=== PATIENT | male | born 1985 | race Caucasian/White ===

== ENCOUNTER 2016-04-20 11:11 | Emergency (ER) | payer MEDICAID | END 2016-04-20 14:02 | disposition left against medical advice (07) | LOC: D.ER 11:11 | DX: R07.9 Chest pain, unspecified (principal) ==

== ENCOUNTER 2016-08-14 16:51 | Emergency (ER) | payer MEDICAID | END 2016-08-14 20:22 | disposition home or self-care (01) | LOC: D.ER 16:51 | DX: R51 Headache (principal); S00.83XA Contusion of other part of head, initial encounter; X58.XXXA Exposure to other specified factors, initial encounter ==

== ENCOUNTER 2019-03-10 10:18 | Emergency (ER) | payer MEDICAID ==
[~2019-03-10] VITALS: Ht 188 cm; Wt 81.8 kg
[2019-03-10 10:26] VITALS: Ht 188 cm; Wt 81.8 kg
[2019-03-10 10:59] LABS: BASOPHILS 0.2 % (0-2); EOSINOPHILS 0.4 % (0-7); HEMATOCRIT 43.5 % (42.0-54.0); HEMOGLOBIN 15.1 g/dL (13.5-17.5); IMMATURE GRANULOCYTES 0.1 % (0-5); LYMPHOCYTES 8.2 % (15-50); MCH 33.2 pg (26.0-34.0); MCHC 34.7 g/dL (31.0-37.0); MCV 95.6 fL (80.0-100.0); MEAN PLATELET VOLUME 10.6 fL (7.4-10.4); MONOCYTES 7.5 % (2-11); NEUTROPHILS 83.6 % (40-80); PLATELET COUNT 159 10x3/uL (130-400); RBC 4.55 10x6/uL (4.20-6.10); WBC 9.7 10x3/uL (4.8-10.8)
[2019-03-10 11:00] LABS: CALC OSMOLALITY 264 mosm/kg (275-300); CALCIUM 9.2 mg/dL (8.5-10.1); CARBON DIOXIDE 24.3 mmol/L (21.0-32.0); CHLORIDE - SERUM 96 mmol/L (98-107); CREATININE - SERUM 0.6 mg/dL (0.6-1.3); GLUCOSE 143 mg/dL (74-106); POTASSIUM - SERUM 3.6 mmol/L (3.5-5.1); SODIUM 133 mmol/L (136-145); UREA NITROGEN 5 mg/dL (7-18); eGFR NON AFRICAN AMERICAN > 90 mL/min (90-120)
[2019-03-10 11:02] LABS: APTT 30.3 SECONDS (22.8-39.4); INR 1.14 (0.85-1.17); PROTIME 14.1 SECONDS (11.6-15.0)
[2019-03-10 11:15] LABS: ALBUMIN 3.6 g/dL (3.4-5.0); ALKALINE PHOSPHATASE 209 U/L (46-116); ALT (SGPT) 340 U/L (10-68); BILIRUBIN - TOTAL 1.04 mg/dL (0.2-1.3); CREATINE KINASE 235 UL (21-232); MAGNESIUM - SERUM 1.8 mg/dL (1.8-2.4); PROTEIN - SERUM 8.2 g/dL (6.4-8.2)
[2019-03-10 11:17] LABS: TROPONIN-I < 0.017 ng/mL (0.000-0.060)
[2019-03-10 13:34] VITALS: BP 129/88
== END 2019-03-10 14:10 | disposition home or self-care (01) ==
LOC: D.ER 10:18
PROVIDERS: Family Medicine
DX: F41.9 Anxiety disorder, unspecified (principal); F10.10 Alcohol abuse, uncomplicated; E86.0 Dehydration